=== PATIENT | female | born 1960 | race Caucasian/White ===

== ENCOUNTER 2016-11-05 16:10 | Outpatient (CLI) | payer OTHER | END 2016-11-05 16:11 | disposition critical access hospital (66) | LOC: EMS 16:10 | PROVIDERS: ATTEND Surgery | DX: M25.552 Pain in left hip (principal); W01.0XXA Fall on same level from slipping, tripping and stumbling without subsequent striking against object, initial encounter; Y93.01 Activity, walking, marching and hiking; Y92.832 Beach as the place of occurrence of the external cause | CPT/HCPCS: A0425; A0429 ==

== ENCOUNTER 2016-11-05 16:27 | Inpatient (IN) | payer OTHER ==
--- NOTE | 2016-11-05 16:36 | ED Physician Documentation ---
PD HPI Fall - Stated complaint Stated Complaint: FALL - History obtained from History obtained from: Patient, EMS - History of Present Illness Mechanism of injury: Other (She has a history of sacral fracture, she was walking on the beach today and slipped feel. Fell into a sitting position against a log. She has severe sacral and left hip pain and is unable to ambulate. Brought in by ambulance. No other injuries.) Review of Systems Ten Systems: 10 systems reviewed and negative Constitutional: denies: Fever, Chills Throat: denies: Dental pain / toothache, Sore throat Cardiac: denies: Chest pain / pressure, Palpitations Respiratory: denies: Dyspnea, Cough PD PAST MEDICAL HISTORY - Past Medical History Respiratory: Asthma Endocrine/Autoimmune: HyPOthyroidism - Present Medications Home Medications: Ambulatory Orders Medication Instructions Recorded Confirmed Beclomethasone 80 Mcg [Qvar 80] 1 spray PO DAILY 11/05/16 11/05/16 Fluticasone [Flonase] 1 spray PO DAILY 11/05/16 11/05/16 Levalbuterol HCl [Xopenex] 1 puffs PO DAILY 11/05/16 11/05/16 Levothyroxine [Synthroid] 25 mcg PO DAILY 11/05/16 11/05/16 Loratadine [Claritin] 10 mg PO DAILY 11/05/16 11/05/16 Thyroid,Pork [[place] Thyroid] 1 tab PO DAILY 11/05/16 11/05/16 - Allergies Allergies/Adverse Reactions: Allergies Allergy/AdvReac Type Severity Reaction Status Date / Time codeine AdvReac Nausea Verified 11/05/16 16:31 hydrocodone AdvReac Nausea Verified 11/05/16 16:31 - Social History Does the pt smoke?: No Does the pt drink ETOH?: No Does the pt have substance abuse?: No - Family History Family history: reports: Non contributory PD ED PE NORMAL - Vitals Vital signs reviewed: Yes - General General: Alert and oriented X 3, Other (Laying supine, in pain, A/O x3) - HEENT HEENT: PERRL, EOMI - Neck Neck: Supple, no meningeal sign, No bony TTP - Cardiac Cardiac: RRR, No murmur - Respiratory Respiratory: No respiratory distress, Clear bilaterally - Abdomen Abdomen: Soft, Non tender - Back Back: No spinal TTP, Other (Mild TTP sacrum. She is TTP lateral L hip and pelvis and pain with int/ext rotation L hip, also TTP over R ASIS. Remainder of LE are NTTP.) - Neuro Neuro: Alert and oriented X 3, Normal speech - Psych Psych: Normal mood, Normal affect Results - Vitals Vitals: Vital Signs - 24 hr 11/05/16 11/05/16 16:31 18:49 Temperature 36.1 C L Heart Rate 65 56 L Respiratory 20 18 Rate Blood Pressure 145/91 H 134/64 H O2 Saturation 99 98 Oxygen O2 Source Room air - Labs Labs: Laboratory Tests 11/05/16 11/05/16 17:31 17:45 WBC 5.5 RBC 4.23 Hgb 13.6 Hct 40.4 MCV 95.4 MCH 32.0 H MCHC 33.6 RDW 13.6 Plt Count 187 MPV 8.0 Neut # 3.7 Lymph # 1.3 L Dillon # 0.4 Eos # 0.1 Baso # 0.0 Absolute Nucleated RBC 0.00 Nucleated RBCs 0.0 Sodium 140 Potassium 3.7 Chloride 107 Carbon Dioxide 23 Anion Gap 10.0 BUN 20 Creatinine 0.7 Estimated GFR (MDRD) 86 L Glucose 96 Calcium 9.1 Total Bilirubin 0.5 AST 21 ALT 17 Alkaline Phosphatase 53 Total Protein 6.4 L Albumin 4.0 Globulin 2.4 Albumin/Globulin Ratio 1.7 Lipase 28 - Rads (name of study) L hip and sacral XR Radiology: EMP read contemporaneously (Arthritic chgs, no obvious frx.) CT Hip Radiology: EMP read contemporaneously (NAD, chronic chgs) PD MEDICAL DECISION MAKING - ED course ED course: 56-year-old woman presents [place] a fall in the beach complaining of more hip and sacral pain. She was unable to walk or bear weight and despite negative CT and hip x-ray imaging, I have a persisting concern about occult nondisplaced hip fracture. Took spoke with Dr. Stevens, the on-call orthopedist at 7:05 PM who would like us to admit to medicine for serial MRI of the left hip to rule out occult fracture. And spoke with Dr Diaz for obs at 1922 Departure - Departure Disposition: ED Place in Observation Clinical Impression: Hip pain, left Fall Qualifiers: Encounter type: initial encounter Qualified Code(s): W19.XXXA - Unspecified fall, initial encounter Condition: Stable
--- NOTE | 2016-11-05 17:33 | XRAY Preliminary Report ---
Exam: XR Sacrum/Coccyx IMPRESSION: 1. Evaluation of the sacrum is limited due to overlying bowel gas and stool. No acute sacral fracture noted. 2. See separate hip and pelvis radiograph report. [facility] SITE ID: [id number]
--- NOTE | 2016-11-05 17:33 | XRAY Preliminary Report ---
Exam: XR Hip w/Pelvis 2-3V LT IMPRESSION: 1. No fracture. 2. Normal alignment. Moderate right and mild left hip arthritis. [facility] SITE ID: [id number]
--- NOTE | 2016-11-05 17:37 | XRAY Report ---
EXAM: SACRUM AND COCCYX RADIOGRAPHY EXAM DATE: 11/05/2016 05:07 p.m. HISTORY: Back/hip pain post fall. COMPARISONS: None. TECHNIQUE: 2 views. FINDINGS: Alignment: Normal. The sacrum and coccyx are normally aligned. Bones: Normal. No fracture or bone lesion. Stool and gas overlying the sacrum is limiting the evaluat ion. No new sacral fracture is noted. Joints: Mild bilateral SI joint sclerosis. Normal alignment of both hip joints. Mild left hip joint s pace narrowing. Soft Tissues: Unremarkable. IMPRESSION: 1. Evaluation of the sacrum is limited due to overlying bowel gas and stool. No acute sacral fracture noted. 2. See separate hip and pelvis radiograph report. [facility] Referring Provider Line: [phone] SITE ID: [id number]
[2016-11-05 17:49] LABS: ALBUMIN/GLOBULIN RATIO 1.7 (1.0-2.2); BILIRUBIN,TOTAL 0.5 mg/dL (0.2-1.0); CALCIUM 9.1 mg/dL (8.5-10.3); CREATININE 0.7 mg/dL (0.4-1.0); POTASSIUM 3.7 mmol/L (3.5-5.0); TOTAL PROTEIN 6.4 g/dL (6.7-8.2)
[2016-11-05 17:51] LABS: BASOPHILS % (AUTO) 0.3 %; EOSINOPHILS # (AUTO) 0.1 10^3/uL (0.0-0.7); EOSINOPHILS % (AUTO) 1.2 %; HCT - HEMATOCRIT 40.4 % (37.0-47.0); HGB - HEMOGLOBIN 13.6 g/dL (12.0-16.0); LYMPHOCYTES # (AUTO) 1.3 10^3/uL (1.5-3.5); MEAN CORPUSCULAR HGB CONC 33.6 g/dL (32.0-36.0); MEAN CORPUSCULAR VOLUME 95.4 fL (81.0-99.0); MONOCYTES # (AUTO) 0.4 10^3/uL (0.0-1.0); MONOCYTES % (AUTO) 7.5 %; NEUTROPHILS # (AUTO) 3.7 10^3/uL (1.5-6.6); RED BLOOD COUNT 4.23 10^6/uL (4.20-5.40); RED CELL DISTRIBUTION WIDTH 13.6 % (12.0-15.0); UNCORRECTED WHITE BLOOD COUNT 5.5 x10^3/uL; WHITE BLOOD COUNT 5.5 x10^3/uL (4.8-10.8)
--- NOTE | 2016-11-05 17:51 | XRAY Report ---
EXAM: LEFT HIP AND PELVIS RADIOGRAPHY EXAM DATE: 11/05/2016 05:07 p.m. HISTORY: Back/hip pain post fall. COMPARISONS: None. TECHNIQUE: 1 view of the pelvis and 1 view of the hip. FINDINGS: Bones: Normal. No fracture or bone lesion. Joints: Moderate right and mild left hip joint space narrowing. Normal alignment. Mild sclerosis of b oth SI joints with additional degenerative changes in the lower lumbar spine. Soft Tissues: Normal. No soft tissue swelling. IMPRESSION: 1. No fracture. 2. Normal alignment. Moderate right and mild left hip arthritis. [facility] Referring Provider Line: [phone] SITE ID: [id number]
[2016-11-05] MEDS ORDERED: ACETAMINOPHEN 325 MG TABLET PO STA (18:05)
[2016-11-05] MEDS ORDERED: ACETAMINOPHEN 325 MG TABLET PO ONE (18:10)
--- NOTE | 2016-11-05 18:50 | CT Preliminary Report ---
Exam: CT Pelvis W/O IMPRESSION: 1. No acute fracture or bone lesions. 2. 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 3. Mild bilateral hip joint space narrowing. [facility] SITE ID: [id number]
--- NOTE | 2016-11-05 18:52 | CT Report ---
EXAM: CT BONY PELVIS WITHOUT CONTRAST EXAM DATE: 11/05/2016 06:31 PM. CLINICAL HISTORY: Persistent left hip pain after trauma. COMPARISON: None. TECHNIQUE: Thin-section axial images were acquired of the pelvis without contrast. Post-processing: C oronal and sagittal reformats. Other: None. In accordance with CT protocol optimization, one or more of the following dose reduction techniques w ere utilized for this exam: automated exposure control, adjustment of mA and/or KV based on patient s ize, or use of iterative reconstructive technique. FINDINGS: Bones: No fracture or bone lesion. Sacroiliac Joints: Sclerosis at the medial aspect of the left iliac bone, adjacent to the left sacroi liac joint. Otherwise, the sacroiliac joints are unremarkable. Symphysis Pubis: Unremarkable. Right Hip: Mild hip joint space narrowing. Left Hip: Small osteophytes at the left femoral head margin. Mild hip joint space narrowing. Musculature: Normal. No fatty atrophy. Pelvic Cavity: The visualized bowel, bladder, and reproductive organs are unremarkable on this noncon trast exam. Other: No lymphadenopathy. No free air or free fluid. The other visualized soft tissues are unremarka ble. IMPRESSION: 1. No acute fracture or bone lesions. 2. 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 3. Mild bilateral hip joint space narrowing. [facility] Referring Provider Line: [phone] SITE ID: [id number]
[2016-11-05] MEDS ORDERED: oxyCODONE 5 MG TABLET PO PRN (19:39)
[2016-11-05] MEDS ORDERED: TEMAZEPAM 15 MG CAPSULE PO PRN (19:39)
[2016-11-05] MEDS ORDERED: HYDROmorphone 1 MG/ML SYRINGE IVP PRN (19:39)
[2016-11-05] MEDS ORDERED: SODIUM CHLORIDE FLUSH 0.9% 10 ML SYRINGE IVP PRN (19:39)
[2016-11-05] MEDS ORDERED: ONDANSETRON ODT 4 MG TABLET TL PRN (19:39)
[2016-11-05] MEDS ORDERED: SODIUM CHLORIDE 0.9% 1,000 ML IV SCH (20:00)
[2016-11-05] MEDS: ACETAMINOPHEN 325 MG TABLET PO PRN (21:06)
[2016-11-05] MEDS: SODIUM CHLORIDE FLUSH 0.9% 10 ML SYRINGE IVP SCH (21:06)
[2016-11-05] MEDS: HEPARIN 5,000 UNIT/ML VIAL SUBQ SCH (21:06)
[2016-11-06] MEDS: ACETAMINOPHEN 325 MG TABLET PO PRN ×2 (03:06→08:01)
[2016-11-06] MEDS: SODIUM CHLORIDE FLUSH 0.9% 10 ML SYRINGE IVP SCH ×3 (05:46→21:47)
[2016-11-06] MEDS ORDERED: LEVALBUTEROL 1.25 MG INH PRN (07:06)
[2016-11-06] MEDS ORDERED: SODIUM CHLORIDE INHALATION 3 ML NEB INH PRN (07:07)
[2016-11-06] MEDS ORDERED: BUDESONIDE 0.5 MG/2 ML NEB INH SCH (08:00)
[2016-11-06] MEDS: LORATADINE 10 MG TABLET PO SCH (08:54)
[2016-11-06] MEDS: FLUTICASONE NASAL SPRAY NAS SCH (08:54)
[2016-11-06] MEDS ORDERED: LEVOTHYROXINE 25 MCG TABLET PO SCH (09:00)
[2016-11-06] MEDS ORDERED: THYROID PORK PO SCH (09:00)
[2016-11-06] MEDS ORDERED: LEVALBUTEROL INH SCH (09:00)
[2016-11-06] MEDS ORDERED: BECLOMETHASONE 80 MCG INH SCH (09:00)
[2016-11-06] MEDS: POLYETHYLENE GLYCOL 3350 17 GM PACKET PO SCH (09:11)
[2016-11-06] MEDS: LEVOTHYROXINE 25 MCG TABLET PO SCH (09:13)
[2016-11-06] MEDS: HEPARIN 5,000 UNIT/ML VIAL SUBQ SCH ×2 (11:05→22:42)
--- NOTE | 2016-11-06 11:31 | PROVIDER PROGRESS NOTE ---
Subjective - Prog Note Date Prog Note Date: 11/06/16 Prog Note Time: 11:28 - Subjective Pt reports feeling: No change Subjective: pt report she still has pain at 6/10 when she walk through to bathroom pt only take Tylenol for pain control Objective - Vital Signs/Intake & Output Vital Signs: Vital Signs x48h Temp Pulse Resp BP Pulse Ox 11/06/16 07:56 37.0 C 60 16 103/64 99 Intake & Output: Intake & Output 11/03/16 11/04/16 11/05/16 11/06/16 23:59 23:59 23:59 23:59 Intake Total 900 Balance 900 - Objective General Appearance: positive: No acute distress, Alert. negative: Mild distress , Moderate distress, Severe distress, Anxious, Lethargic, Other Eyes Bilateral: positive: Normal inspection, PERRL, EOMI. negative: No lid inflammation, Conjunctivae nml, No scleral icterus, Other ENT: positive: ENT inspection nml, Pharynx nml, No signs of dehydration. negative: Purulent nasal drainage, Pharyngeal erythema, Oral lesions, Dry mucous membranes, Other Neck: positive: Nml inspection, Thyroid nml, No JVD, Trachea midline. negative : Thyromegaly, Lymphadenopathy (R), Lymphadenopathy (L), Stiff neck, Kernig's sign, Brudzinski's sign, Carotid bruit, Swelling/bruising, Tracheal deviation, Other Respiratory: positive: Chest non-tender, No respiratory distress, Breath sounds nml. negative: Wheezes, Rales, Rhonchi, Other Cardiovascular: positive: Regular rate & rhythm, No murmur, No gallop. negative : Irregularly irregular, Extrasystoles, Tachycardia, Bradycardia, PMI displaced laterally, JVD present, Systolic murmur, Diastolic murmur, Gallop/S3, Gallop/S4 , Friction rub, Decreased pulse(s), Crepitus, Other Peripheral Pulses: 2+ Radial (R), 2+ Radial (L), 2+ Dorsalis pedis (R), 2+ Dorsalis pedis (L) Abdomen: positive: Non-tender, Nml bowel sounds, No distention. negative: No organomegaly, Tenderness, Guarding, Rebound, Hepatomegaly, Splenomegaly, Mass, Abnml bowel sounds, Bruit, Other Back: positive: Nml inspection. negative: CVA tenderness (R), CVA tenderness (L ), Other Skin: positive: Color nml, Warm. negative: No rash, Dry, Cyanosis, Diaphoresis , Pallor, Skin rash, Decubitus, Laceration (cm), Puncture wound, Embolic lesions , Other Extremities: positive: Non-tender, Full ROM, Nml appearance. negative: No pedal edema, Pedal edema, Calf tenderness, Joint swelling, Truman's sign/cords, Other Neurologic/Psychiatric: positive: Oriented x3, CN's nml (2-12), Motor nml, Sensation nml, Mood/affect nml. negative: Disoriented to person, Disoriented to place, Disoriented to time, Weakness, Sensory loss, Facial droop, Slurred/ abnml speech, Depressed mood/affect, Other - Lab Results Fish Bones: 11/05/16 17:45 11/05/16 17:31 Assessment/Plan - Problem List (1) Hip pain, left Impression: pain control, pt only take Tylenol , MRI on Monday. Patient state she understand and desire stay for Monday's MRI (2) Asthma Impression: hx of asthma, pt take Qvar at home. Pt requests only Qvar. We put back, and D/C others (3) Hypothyroid Impression: check TSH, follow up. continue home meds
--- NOTE | 2016-11-06 12:59 | PROVIDER PROGRESS NOTE ---
Subjective - Prog Note Date Prog Note Date: 11/06/16 Prog Note Time: 12:56 - Subjective Pt reports feeling: Improved (Less pain today. Able to weight bear and walk to bathroom with much less pain this AM. Subjective numbness in leg has resolved as well) Objective - Vital Signs/Intake & Output Vital Signs: Vital Signs x48h Temp Pulse Resp BP Pulse Ox 11/06/16 07:56 37.0 C 60 16 103/64 99 Intake & Output: Intake & Output 11/03/16 11/04/16 11/05/16 11/06/16 23:59 23:59 23:59 23:59 Intake Total 900 Balance 900 - Lab Results Fish Bones: 11/05/16 17:45 11/05/16 17:31 - Diagnostic Imaging Diagnostic Imaging Comments: XR and CT scan of pelvis, including left hip show acute fractures, specificly no left hip fracture - Other Results/Comments Other Results/Comments: EXAM: mildly tender over left ischial area; minimal swelling; no bruising seen. FROM of hip without pain or splinting.. No anterior groin tenderness. Sensation intact distally. Moves toes and ankle well. Good cap filling Assessment/Plan - Problem List (1) Hip pain, left Impression: Probable left hip contusion from recent fall at the beach. Is much improved this AM functionally and symptomatically. PLAN: Encourage mobilization as tolerated. Can have MRI scan as out patient vs as inpatient to rule out occult left hip fracture. If there is increased marrow signal in ischial area, this can be treated symptomatically with weight bearing as tolerated on left. Follow up with be with [facility] in [facility] [place], where patient resides.
[2016-11-06] MEDS: QVAR 80 MCG INH SCH ×2 (13:37→19:00)
--- NOTE | 2016-11-06 18:03 | CONSULTATION NOTE ---
ORTHOPEDIC CONSULTATION NOTE DATE OF CONSULTATION: 11/06/2016 00:00:00 REQUESTING PROVIDER: Nazario Mei M.D., Emergency Department CHIEF COMPLAINT: "My right ischial area hurts." HISTORY OF PRESENTING ILLNESS: Ms. Tanika Cohen is a 56-year-old female who apparently stumbled at the beach yesterday afternoon, falling onto her left side and posterior left hip. The amanda doty's past medical history is significant for a fall that she had in 2009 where she sustained that sounds like a compression fracture of S3/S4, which did not require surgical stabilization. She, ayan espino, has not had any medical followup with regards to her spine or hip since this fall. She has been seen by her [facility] in [place] for her healthcare issues. She has not had any followup x-rays to her spine or pelvic region since that fall in 2009. With the most recent fall that occurred on day of her admission, she has had pain with weightbearing on the left side. She had some subjecti ve numbness radiating down her left leg as well. Workup in the emergency room, including plain x-ray s of the pelvis as well as a CT scan of the pelvis and lower spine, showed no acute fractures seen, a nd specifically no hip fractures seen. The patient was subsequently admitted to observation status to see if her symptoms would improved wit h conservative management, with continued symptoms, a consideration would include further workup on when an MRI scan would be available for her pelvis and lower spine region. In speaking with the patient today, she has noted improvement in her symptoms and her presentation. She no longer is having any numbness radiating down her left leg like she had on her initial presenta tion. She has been able to go to the bathroom for bowel and bladder without any control problems. T patient has been able to ambulate with weightbearing as tolerated on this extremity. She walks fr om her bed to the bathroom with minimal assistance. Overall, she feels that her condition has improv ed functionally and subjectively. PHYSICAL EXAMINATION: The patient's left hip was examined today on our bedside evaluation. She had some minimal tenderness in her posterior hip region in the area of her ischium. There is no real sof t tissue swelling or bruising noted in this region. She has excellent range of motion of her hip and flexion and rotation today without any pain. Negative Anvil sign is noted on percussion over her he el as well. The patient moves her toes and her ankles well today, with 5 out of 5 strength on resist ed toe extension, ankle extension, toe flexion, and ankle plantar flexion. Sensation is grossly inta ct and symmetrical throughout on light touch exam. Good capillary refilling noted. Her deep tendon reflex examinations are symmetrical in the lower extremities as well at the ankle and knee. DIAGNOSTIC STUDIES: Review of x-rays that were taken and her CT scan showed no acute fractures visib le on these studies. ASSESSMENT Left hip pain: Likely a result of the left hip contusion. PLAN: The patient will be mobilized as tolerated, taking mild analgesics or ice to the symptomatic r egion as needed as well. I have offered her the option of either having an outpatient workup for an MRI scan to rule out an occult fracture in her pelvis or lower spine as an outpatient in view of her clinical improvement over the last 12 to 24 hours since her accident yesterday. The other option wou ld be to proceed with an inpatient MRI scan of her pelvis and lower spine tomorrow or Monday when o se studies are available at our hospital. In either case, it is not likely that she is going to have anything that will require surgical stabilization in view of her clinical improvement over the last 12 to 24 hours. Followup after discharge will be with her [facility] in [place] with the possibil ity of her obtaining medical provider followup in [place] as well. 13:9:00 JOB #: [id number] EXT JOB #:[id number]
[2016-11-07] MEDS: ACETAMINOPHEN 325 MG TABLET PO PRN ×4 (00:07→12:46)
[2016-11-07 04:49] LABS: BASOPHILS % (AUTO) 0.7 %; EOSINOPHILS # (AUTO) 0.2 10^3/uL (0.0-0.7); EOSINOPHILS % (AUTO) 4.4 %; HCT - HEMATOCRIT 42.7 % (37.0-47.0); HGB - HEMOGLOBIN 14.1 g/dL (12.0-16.0); LYMPHOCYTES # (AUTO) 1.6 10^3/uL (1.5-3.5); LYMPHOCYTES % (AUTO) 33.4 %; MEAN CORPUSCULAR HEMOGLOBIN 31.7 pg (27.0-31.0); MEAN CORPUSCULAR VOLUME 96.3 fL (81.0-99.0); MEAN PLATELET VOLUME 7.8 fL (7.9-10.8); MONOCYTES # (AUTO) 0.4 10^3/uL (0.0-1.0); MONOCYTES % (AUTO) 8.6 %; NEUTROPHILS # (AUTO) 2.5 10^3/uL (1.5-6.6); NEUTROPHILS % (AUTO) 52.9 %; NUCLEATED RED BLOOD CELLS AUTO 0.1 /100WBC; RED BLOOD COUNT 4.43 10^6/uL (4.20-5.40); RED CELL DISTRIBUTION WIDTH 13.5 % (12.0-15.0); UNCORRECTED WHITE BLOOD COUNT 4.8 x10^3/uL; WHITE BLOOD COUNT 4.8 x10^3/uL (4.8-10.8)
[2016-11-07 05:01] LABS: ALBUMIN/GLOBULIN RATIO 1.5 (1.0-2.2); BILIRUBIN,TOTAL 0.6 mg/dL (0.2-1.0); CALCIUM 9.1 mg/dL (8.5-10.3); CREATININE 0.6 mg/dL (0.4-1.0); POTASSIUM 4.2 mmol/L (3.5-5.0); TOTAL PROTEIN 6.1 g/dL (6.7-8.2)
[2016-11-07] MEDS: SODIUM CHLORIDE FLUSH 0.9% 10 ML SYRINGE IVP SCH (05:31)
[2016-11-07] MEDS: LEVOTHYROXINE 25 MCG TABLET PO SCH (06:35)
[2016-11-07] MEDS: QVAR 80 MCG INH SCH (07:20)
[2016-11-07 07:55] VITALS: BP 111/76
--- NOTE | 2016-11-07 07:57 | HISTORY & PHYSICAL EXAMINATION ---
DATE OF ADMISSION: 11/05/2016 PRIMARY CARE PROVIDER: Dr. Carrero, naturopathic physician in [place]. CHIEF COMPLAINT "Fell over a wet log, got wedged in between" while she was walking on the beach and h as intractable left posterior hip pain. 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 She had x-ray of the sacrum and coccyx which revealed no acute sacral fract ure noted. However, there was some limitation in technique due to overlying bowel gas. Left hip and p jadon x-ray revealed no fracture, normal alignment, moderate right and mid left hip arthritis. Of not e, patient in 2009, did sustain a left S4 fracture of the sacrum with residual neurological irritatio n. She is able to walk at this point, but does continue with physical therapy due to some underlying pain there. The patient was unable to move for about 3 hours. She did call 911 and rescue people had to get her unentrapped from underneath the log. PAST MEDICAL HISTORY 1. Type 2 diabetes diet controlled. 2. Asthma. 3. Hypothyroidism. 4. History of type 2 diabetes, diet controlled. 5. Celiac disease. ALLERGIES: 1. CODEINE. 2. HYDROCODONE. SOCIAL HISTORY: Lives with . Smoking never. Alcohol none. FAMILY MEDICAL HISTORY: Mother with a history of osteoarthritis. REVIEW OF SYSTEMS; All other review of systems are reviewed and are negative except as noted in the H PI. PHYSICAL EXAMINATION: VITAL SIGNS: Temperature is afebrile. Heart rate is 56, blood pressure 134/64, respiratory rate 18, r oom air saturation 98%. CONSTITUTIONAL: Middle aged woman in mild pain distress. HEENT: Head normocephalic, atraumatic. Eyes: PERRLA-DC, EOMI. Mouth: No lesions. NECK: No adenopathy. CHEST: Clear to auscultation. COR: Regular rate and rhythm. S1, S2, without murmur. ABDOMEN: Soft, nontender. Bowel sounds present. There is no contusion noted over the left hip area, b ut there is pain over the posterior lateral buttocks area and pain with left hip movement. EXTREMITIES: No pedal edema. SKIN: Reveals no rashes. PSYCH: Mood and affect are appropriate. NEURO: Alert and oriented x3, motor strength is intact bilaterally. LABORATORY: White count is 5.5, hemoglobin 13.6, hematocrit 40.4, MCV 95.4, platelets 187, with neutr ophils 3.7. Sodium 140, potassium 3.7, chloride 107, bicarb 23, BUN 20, creatinine 0.7, calculated GF R is 86, glucose 96, calcium 9.1, total bilirubin 0.5, AST 21, ALT 17, alkaline phosphatase 53, total protein 6.4, albumin 4.0, lipase at 28, CPK is pending at the time of this dictation. ASSESSMENT AND PLAN: 1. Intractable left hip pain after a fall and entrapment under a log on the beach. Will go ahead and give pain control with medications. Orthopaedic Surgery is to see in the a.m. Per Dr. Mei emergen room doctor, they recommended an MRI to further investigate which will not be able to be done here until Monday. 2. Celiac disease, chronic, present on admission. Will maintain celiac diet, get nutrition consult fo r this. 3. Hypothyroidism, chronic. Continue with her current dosing of medication. 4. Asthma. Continue with her home medication regimen, currently stable. 5. DVT prophylaxis. Will use subcutaneous heparin. 6. CODE STATUS: PATIENT IS FULL CODE. TIME SPENT: 60 minutes. JOB #: [id number] EXT JOB #:[id number]
[2016-11-07] MEDS: HEPARIN 5,000 UNIT/ML VIAL SUBQ SCH (08:20)
[2016-11-07] MEDS: FLUTICASONE NASAL SPRAY NAS SCH (08:20)
[2016-11-07] MEDS: LORATADINE 10 MG TABLET PO SCH (08:20)
[2016-11-07] MEDS: POLYETHYLENE GLYCOL 3350 17 GM PACKET PO SCH (09:04)
--- NOTE | 2016-11-07 11:35 | MRI Report ---
EXAM: LEFT HIP MRI WITHOUT CONTRAST EXAM DATE: 11/07/2016 11:04 AM. CLINICAL HISTORY: Persistent left hip pain after a fall. Fracture. COMPARISON: Left hip series and CT pelvis 11/05/2016. TECHNIQUE: Multiplanar, multisequence T1-weighted and fluid-sensitive, small [id number] sequences of the hip and large [id number] sequences of the pelvis without contrast. Other: None. FINDINGS: Bones: Mild zone one insufficiency fracture of the right sacral ala with mild edema. No other fractur es in the remainder of the bony pelvis and hips. No subluxations. No bone lesions. No avascular necro sis. Left Hip: No acetabular retroversion. Femoral head/neck offset is within normal limits. No effusion o r loose bodies. Left hip osteoarthritis with small osteophytes, cartilaginous thinning and mild joint space narrowing. Abnormal linear T2 hyperintensity at the base of the left hip anterosuperior labrum (series 701 image 21) consistent with labral tear, likely full thickness although cannot be definiti vely confirmed on this nonarthrographic study. The ligamentum teres is intact. Other Joints: Mild degenerative changes in the visualized lumbar spine, sacroiliac joints, symphysis pubis. Musculature: Mild edema in the posterior and medial left gluteus toni, consistent with mild contus ion or muscular strain, without focal intramuscular hematoma. There is overlying mild subcutaneous ed mary. No fatty atrophy. The gluteus medius and minimus tendons are normal. The visualized hamstring t endons are normal. The ischiofemoral space is normal. Pelvic Cavity: The visualized viscera are unremarkable. No lymphadenopathy. No free fluid in the pelv is. Other: The visualized sciatic nerves are unremarkable. No bursitis. The subcutaneous tissues other th an mild edema overlying the left gluteus toni are unremarkable. IMPRESSION: 1. Mild zone one insufficiency fracture of the right sacral ala with mild edema. No other fractures i n the remainder of the bony pelvis and hips. 2. Abnormal linear T2 hyperintensity at the base of the left hip anterosuperior labrum consistent wit h labral tear, likely full thickness although cannot be definitively confirmed on this nonarthrograph ic study. 3. Mild edema in the posterior and medial left gluteus toni, consistent with mild contusion or mus cular strain, without focal intramuscular hematoma. There is overlying mild subcutaneous edema. 4. Left hip osteoarthritis with small osteophytes, cartilaginous thinning and mild joint space narrow ing. [facility] MUSCULOSKELETAL [facility]IOLOG[facility] SECTION Referring Provider Line: [phone] SITE ID: [id number]
--- NOTE | 2016-11-07 13:30 | PROVIDER PROGRESS NOTE ---
Subjective - Prog Note Date Prog Note Date: 11/07/16 Prog Note Time: 13:25 - Subjective Pt reports feeling: Improved Subjective: patient report she feel much better. patient report she want to D/c today. Objective - Vital Signs/Intake & Output Vital Signs: Vital Signs x48h Temp Pulse Resp BP Pulse Ox 11/07/16 07:53 36.6 C 51 L 12 111/76 99 Intake & Output: Intake & Output 11/04/16 11/05/16 11/06/16 11/07/16 23:59 23:59 23:59 23:59 Intake Total 1140 210 Balance 1140 210 - Objective General Appearance: positive: No acute distress, Alert. negative: Mild distress , Moderate distress, Severe distress, Anxious, Lethargic, Other Eyes Bilateral: positive: Normal inspection, PERRL. negative: EOMI, No lid inflammation, Conjunctivae nml, No scleral icterus, Other ENT: positive: ENT inspection nml, Pharynx nml, No signs of dehydration. negative: Purulent nasal drainage, Pharyngeal erythema, Oral lesions, Dry mucous membranes, Other Neck: positive: Nml inspection, Thyroid nml, No JVD, Trachea midline. negative : Thyromegaly, Lymphadenopathy (R), Lymphadenopathy (L), Stiff neck, Kernig's sign, Brudzinski's sign, Carotid bruit, Swelling/bruising, Tracheal deviation, Other Respiratory: positive: Chest non-tender, No respiratory distress, Breath sounds nml. negative: Wheezes, Rales, Rhonchi, Other Cardiovascular: positive: Regular rate & rhythm, No murmur, No gallop. negative : Irregularly irregular, Extrasystoles, Tachycardia, Bradycardia, PMI displaced laterally, JVD present, Systolic murmur, Diastolic murmur, Gallop/S3, Gallop/S4 , Friction rub, Decreased pulse(s), Crepitus, Other Peripheral Pulses: 2+ Radial (R), 2+ Radial (L), 2+ Dorsalis pedis (R), 2+ Dorsalis pedis (L) Abdomen: positive: Non-tender, Nml bowel sounds, No distention. negative: No organomegaly, Tenderness, Guarding, Rebound, Hepatomegaly, Splenomegaly, Mass, Abnml bowel sounds, Bruit, Other Back: positive: Nml inspection. negative: CVA tenderness (R), CVA tenderness (L ), Other Skin: positive: Color nml, Warm. negative: No rash, Dry, Cyanosis, Diaphoresis , Pallor, Skin rash, Decubitus, Laceration (cm), Puncture wound, Embolic lesions , Other Extremities: positive: Non-tender, Full ROM, Nml appearance. negative: No pedal edema, Pedal edema, Calf tenderness, Joint swelling, Truman's sign/cords, Other Neurologic/Psychiatric: positive: Oriented x3, CN's nml (2-12), Motor nml, Sensation nml, Mood/affect nml. negative: Disoriented to person, Disoriented to place, Disoriented to time, Weakness, Sensory loss, Facial droop, Slurred/ abnml speech, Depressed mood/affect, Other - Lab Results Fish Bones: 11/07/16 04:40 11/07/16 04:40 Other Labs: Lab Results x24hrs 11/07/16 11/07/16 11/07/16 Range/Units 04:40 04:40 04:40 WBC 4.8 (4.8-10.8) x10^3/uL RBC 4.43 (4.20-5.40) 10^6/uL Hgb 14.1 (12.0-16.0) g/dL Hct 42.7 (37.0-47.0) % MCV 96.3 (81.0-99.0) fL MCH 31.7 H (27.0-31.0) pg MCHC 33.0 (32.0-36.0) g/dL RDW 13.5 (12.0-15.0) % Plt Count 186 (130-450) 10^3/uL MPV 7.8 L (7.9-10.8) fL Neut # 2.5 (1.5-6.6) 10^3/uL Lymph # 1.6 (1.5-3.5) 10^3/uL Parmer # 0.4 (0.0-1.0) 10^3/uL Eos # 0.2 (0.0-0.7) 10^3/uL Baso # 0.0 (0.0-0.1) 10^3/uL Absolute Nucleated RBC 0.00 x10^3/uL Nucleated RBCs 0.1 /100WBC Sodium 140 (135-145) mmol/L Potassium 4.2 (3.5-5.0) mmol/L Chloride 107 (101-111) mmol/L Carbon Dioxide 26 (21-32) mmol/L Anion Gap 7.0 (6-13) BUN 19 (6-20) mg/dL Creatinine 0.6 (0.4-1.0) mg/dL Estimated GFR (MDRD) 103 (>89) Glucose 92 (70-100) mg/dL Calcium 9.1 (8.5-10.3) mg/dL Total Bilirubin 0.6 (0.2-1.0) mg/dL AST 19 (10-42) IU/L ALT 17 (10-60) IU/L Alkaline Phosphatase 51 (42-121) IU/L Total Protein 6.1 L (6.7-8.2) g/dL Albumin 3.7 (3.2-5.5) g/dL Globulin 2.4 (2.1-4.2) g/dL Albumin/Globulin Ratio 1.5 (1.0-2.2) TSH 0.71 (0.34-5.60) uIU/mL Assessment/Plan - Problem List (1) Hip pain, left Impression: I discuss and explain the MRI result to patient. all patient's questions are answered I called today on-call orthopedics surgeon Dr. Usman Briggs, report patient' s conditions and all image study including today MRI result, and discuss d/c plan. Dr. Usman Briggs agree discharge patient on today, and follow up on his office in two weeks. Patient's vital and lab test are stable, pain is on well controlled. PT is working on patient now. follow up. plan to discharge patient on today.
--- NOTE | 2016-11-07 14:10 | Discharge Plan ---
Discharge Plan Disposition: 01 Home, Self Care Condition: Stable Diet: Regular Activity Restrictions: Wt Bearing as Tolerated Shower Restrictions: No Driving Restrictions: Yes (untill cleaned by orthopedics) Assistance Devices: Walker Weight Bearing: Partial Weight Additional Instructions or Follow Up instructions: may follow up Dr. Usman Briggs at office in two weeks Follow-Up Care: Outpatient Rehab - PT No Smoking: If you smoke, Please STOP! Call for help. Follow-up with: Usman Briggs MD [Provider Admit Priv/Credential] -
--- NOTE | 2016-11-08 11:38 | DISCHARGE SUMMARY ---
DATE OF ADMISSION: 11/05/2016 DATE OF DISCHARGE: 11/07/2016 CHIEF COMPLAINT: Hip pain. DISCHARGE DIAGNOSES 1. Intractable left hip pain after fall. 2. Celiac disease. 3. Asthma. 4. Hypothyroidism. MEDICATIONS AT DISCHARGE 1. Albuterol 1 puff inhaled q.4 p.r.n. 2. Flonase 1 spray daily. 3. Synthroid 25 mcg p.o. QDAC. 4. QVAR 80 one puff inhaled b.i.d. 5. Claritin 10 mg p.o. daily. HOSPITAL COURSE: Please see referral by Dr. Diaz on 11/05/2016 in [facility]. The patient comes here with fall over [place] big [place], then she had intractable left hip pain. T he patient had old sacral injury 7 years ago. In the emergency room, the patient had a CT and x-ray t hat showed not any acute fracture, but the patient continued to complain of pain and some kind of dif ficult to walk. Also the patient requests for MRI image study for her. For image study, the patient's CT and x-ray are negative. No acute finding. MRI done on 11/07/2016 has shown mild insufficiency fra cture on the right sacral ala area. No other fracture in the remainder of the bony of the pelvis behi nd the hips. Also, the patient had in the anterior superior of left hip. Also the patient ward d muscle edema, but no hematoma. Also, the patient has hip arthritis of mild to moderate. All of the image studies discussed with the patient and explained to the patient. The patient states she underst ands. Also, I called the on-call orthopedic doctor, Rasheed Briggs, today, this afternoon about the [facility] new image study. Dr. Briggs states the patient can be discharged today and will follow up in md s office in 2 weeks. PHYSICAL EXAMINATION VITAL SIGNS: Today, temperature 36.6, heart rate 51, blood pressure 111/76, respiratory rate 12, O2 s aturation 99 on room air. GENERAL: The patient in no distress. The patient can walk, go to the bathroom on room air. HEENT: Head is normocephalic, atraumatic. Eyes are PERRLA, EOMI. Mouth, no lesions. No sign of dehydr ation. NECK: Trachea in the middle. No adenopathy. CHEST: Clear to auscultation. HEART: Regular rate and rhythm, S1, S2 clear. No murmur, no gallop. ABDOMEN: Soft. No tenderness. Bowel sounds normal. HIP: The patient reports to have pain over the posterolateral of the left hip area. EXTREMITIES: No edema. SKIN: No rash. Normal inspection. NEUROLOGICAL: The patient is alert and oriented x3. Normal sensation, normal motor activity. LABORATORY STUDIES: Today, CBC all unremarkable. CMP unremarkable. CBC: WBC 4.8, RBC 4.43, hemoglobin 14.1, platelets 186. CMP: Sodium 140, potassium 4.2, BUN 19, creatinine 0.6. AST, ALT, alkaline phos phatase all in the normal range. FOLLOWUP CARE: The patient evaluated by the PT. Recommendation is front-wheel walker. The patient has order for the front-wheel walker. The patient's plan is to walk to home today. The patient also will follow up with Dr. Briggs, orthopedic surgeon, in 2 weeks. Activity as tolerated. TIME SPENT ON DISCHARGE: 60 minutes. JOB #: [id number] EXT JOB #:[id number]
== END 2016-11-07 14:36 | disposition home or self-care (01) | DRG 556 ==
LOC: EDUNIT# → ED 16:27 → MS 19:39
PROVIDERS: ADMIT Specialist; ATTEND Internal Medicine
DX: M25.552 Pain in left hip (principal); K90.0 Celiac disease; J45.909 Unspecified asthma, uncomplicated; E03.9 Hypothyroidism, unspecified; W01.0XXA Fall on same level from slipping, tripping and stumbling without subsequent striking against object, initial encounter; Y93.01 Activity, walking, marching and hiking; Y92.832 Beach as the place of occurrence of the external cause; E11.9 Type 2 diabetes mellitus without complications; Z88.5 Allergy status to narcotic agent
CPT/HCPCS: 36415; 72192; 72220; 80053; 82550; 83690; 84443; 85025; 99284; 99285

== ENCOUNTER 2023-02-24 12:00 | Outpatient (CLI) | payer OTHER | END 2023-02-24 12:15 | disposition home or self-care (01) | LOC: LAB.N 12:00 | PROVIDERS: ATTEND Family Medicine | DX: R30.0 Dysuria (principal) | CPT/HCPCS: 87077; 87086; 87181 ==